=== PATIENT | male | born 2000 | race Caucasian/White ===

== ENCOUNTER 2024-10-22 17:40 | Emergency (ER) | payer BC, SELFPAY ==
--- OUTSIDE RECORDS SUMMARY | 2024-10-22 17:42 | XMS_ITS | Clinical Summary ---
Author Organization [facility] Address [address] [place] [id number] Care Team Providers Care Veterinary Laboratory Diagnostician Name Role Phone Mak Martino MD Primary Care Provider Allergies No known active allergies Medications dextroamphetamine- amphetamine (Adderall XR) 15 mg Extended-Release capsuleIndications :ADHD, predominantly inattentive type Take 1 Capsule (15 mg) by mouth once daily. 30 Capsule 4 Active Active Problems Problem Noted Date Diagnosed Date Class 3 severe obesity witho ut serious comorbidity with body mass index (BMI) of 40.0 to 44.9 in adult 09/25/2023 ADHD, predominantly inattentive type 01/25/2011 Resolved Problems Problem Noted Date Diagnosed Date Resolved Date Torus fracture of lower end of left radius 12/04/2011 03/30/2013 Unspecified adjustment reaction 01/10/2011 09/28/2013 Overview (01/10/2011): School adjustment concerns with rule out of ADHD Behavioral problem 11/06/2010 2 Overview (11/06/2010): attention problems Immunizations Immunization Administration Dates Next Due AMB Influenza, IIV3 (Age >=3 years)(Flu Clinic Only) 06/18/2010,05/05/2008 AMB Influenza, IIV4 PF (=>6 mos Flulaval,Fluzone Fluarix)(Flu Clinic Only) 04/26/2020 COVID-19 vaccine (CompologyBio NTech 30mcg/0.3mL) 12YO+ BIVALENT PF, MDV 04/22/2022 COVID-19 vaccine (Infinity [employer]-Bio NTech 30mcg/0.3mL) PF, MDV 11/24/2020,11/03/2020 DTaP 09/25/2007, 4,03/23/2003,01/26,2002 DTaP-HIB (TriHIBIT) 12/30/2003 HIB-HepB (Comvax) 01/26/2003,2002 HPV 9 (Gardasil 9) 04/22/2022,08/07/2020, 019 Hepatitis A (Peds) 03/30/2013,11/04/2008 Hepatitis B (Peds) 06/08/2003 INFLUENZA, IIV3 PF (AGE >= 6 MO) 06/28/2024 Inactivated Polio Vaccine 09/25/2007,09/2002,01/26/2003,11/18 Influenza, IIV3 (Age 6-35 mos) 03/29/2009,2005,05/20/2005 Influenza, IIV3 (Age >=3 years) 06/02/20 13,07/17/2012,06/18/2010,05/05,06/03/2007,05/21/2006,04/11/2004 ,07/19/2003,06/08/2003 Influenza, IIV4 05/28/2023,,07/02/2019,04/15 MENINGOCOCCAL VACCINE 2 VIAL 2MO-55YO (MENVEO) 07/02/2019,02/15/2015 MMR 09/25/2007,09/27/2003 Pneumococcal conj 7-Valent (Prevnar 7) 0 09/24/2004,03/23/2003,01/26/2003,11/18 Tdap 02/15/2015 Tuberculin (PPD) 06/28/2024 Varicella Vaccine 09/25/2007,09/27/2003 Family History Medical History Relation Name Comments Good Health Father Asthma Maternal Grandfather Good Health Mother Heart Disease Paternal Grandfather Cancer-colon No Family History Diabetes No Family History Hyperlipidemia No Family History Relation Name Status Comments Father Maternal Grandfather Mother Paternal Grandfather Social History Tobacco Use Types Packs/Day Years Used Date Smoking Tobacco: Never Smokeless Tobacco: Never Tobacco Cessation:Counseling Given: No Comments:no exposure Alcohol Use Standard Drinks/Week Comments Yes 0 (1 standard drink = 0.6 oz pur e alcohol) PHQ-2 Answer Date Recorded PHQ-2 TOTAL SCORE 0 09/25/2023 Social Connections Answer Date Recorded Frequency of Communication with Friends and Fami ly 0 04/23/2023 Financial Resource Strain Answer Date R ecorded Difficulty of Paying Living Expenses 3 04/23/2023 Difficulty of Paying Living Expenses Not on file 04/23/2023 Food Insecurity Answer Date Recorded Worried About Running Out of Food in the Last Ye ar 1 04/23/2023 Transportation Needs Answer Date Record ed Lack of Transportation (Medical) 1 04/23/2023 Housing Stability Answer Date Recorded Unable to Pay for Housing in the Last Year 1 04/23/2023 Sex and Gender Information Value Date Recorded Sex Assigned at Not on file 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 Gender Identity Not on file Sexual Orientation Not on file Obstetrics History Last Filed Vital Signs Vital Sign Reading Time Taken Comments Blood Pressure 112/76 09/25/2023 4:34 PM CDT Pulse 89 09/25/2023 4:34 PM CDT Temperature 36.4 C (97.6 F) 05/02/2020 11:25 AM CDT Respiratory Rate - - Oxygen Saturation 98% 09/25/2023 4:34 PM CDT Inhaled Oxygen Concentration - - Weight 134.3 kg (296 lb) 09/25/2023 4:34 PM CDT Height 182.2 cm (5' 11.73) 09/25/2023 4:34 PM C DT Body Mass Index 40.45 09/25/2023 4:34 PM CDT Plan of Treatment Health Maintenance Due Date Last Done Comments COVID-19 vaccine series ( season) 2024 05/28/2023, 04/22/2022, 07/03/2021, Additional history exists BMI (ht and wt on same day) for age 18+ 09/24/2024 09/25/2023, 04/22/2022 Depression screening for age 12+ 09/24/2024 09/25/2023, 04/22/2022, 08/07/2020, Additional history exists Tetanus booster 02/15/2025 02/15/2015 Pneumococcal series for age 6-49 Aged Out 09/24/2004, 03/23/2003, 01/26/2003, Additional history exists No longer eligible based on patient's age to complete this topic Tdap Completed 02/15/2015 HPV series for age 9-26 Completed 04/22/20, 08/07/2020, 07/02/2019 HIV for age 15-65 Completed 09/25/2023 Hepatitis C screening for age 18-79 Completed 09/25/2023 Influenza Vaccine Completed 06/28/2024, , 04/22/2022, Additional history exists Procedures Procedure Name Priority Date/Time Associated Diagnosis Comments ANTI HIV 1/2 Routine 09/25/2023 4:57 PM CDT Encounter for screening for HIV ANTI HCV Routine 09/25/2023 4:57 PM CDT Need for hepatitis C screening test from Last 3 Months or Most Recently Relevant to Health Maintenance Results * ANTI HCV (09/25/2023 4:57 PM CDT) HEPATITIS C ANTIBODY Non-Reacti ve Non-React payam 09/26/2023 2:43 PM CDT [facility] [employer] [facility] Comment:Please note, per www .CDC.gov: If a patient is known to be at high risk of HCV infection, or is symptomatic, and the physician's suspicion of HCV infection is high, HCV RNA testing is often employed and is of diagnostic value, even after an initial negative anti-HCV test result. Blood BLOOD SPECIMEN / Unknown Venipuncture / Unknown 09/25/2023 4:57 PM CDT 09/25/2023 4:58 PM CDT us Mak Martino MD SEND OUTS Final Result [facility] [address] [address], [place] * ANTI HIV 1/2 (09/25/2023 4:57 PM CDT) HIV-1/HIV-2 SCREEN Non-Reacti ve Non-Reacti ve 09/26/2023 2:35 PM CDT [facility] Comment:HIV-1 p24 and HIV-1/ HIV-2 Ab Not Detected. Blood BLOOD SPECIMEN / Unknown Venipuncture / Unknown 09/25/2023 4:57 PM CDT 09/25/2023 4:58 PM CDT us Mak Martino MD SEND OUTS Final Result [facility] [address] [place] [id number], from Last 3 Months or Most Recently Relevant to Health Maintenance Insurance [place] [address] [id number] Care Teams Veterinary Laboratory Diagnostician Relationship Specialty Start Date End Date Mak Martino MD [address] [place] [address] PCP - General Family Practice 09/25/23
[2024-10-22 17:47] VITALS: BP 116/79; PULSE 83; RESP 22; TEMP 36.5; O2SAT 97; BMI 46.5
--- NOTE | 2024-10-22 18:02 | CRLHL7_ITS ---
For Patients: As a result of the Century Cures Act, medical imaging exams and procedure reports are released immediately into your electronic medical record. You may view this report before your referring provider. If you have questions, please contact your health care provider. Indication: Left lower abdominal pain Technique: Noncontrast CT through the abdomen and pelvis with multiplanar reformats. Comparison: None Findings: Lower chest: No acute abnormality appreciated. Hepatobiliary: Hepatic steatosis. No acute abnormality appreciated. Spleen: Unremarkable. Pancreas: No acute abnormality appreciated. Adrenal glands: No acute abnormality appreciated. Kidneys: No significant parenchymal abnormality appreciated. No visualized calculi. No hydronephrosis. Bowel: No obstruction. No focal perienteric or pericolonic stranding is appreciated. The appendix is visualized and appears unremarkable. Vascular: Poorly evaluated on this noncontrast examination. Lymph nodes: No gross lymphadenopathy. Peritoneum: No free air. No free fluid. : There is a punctate partially obstructing distal left ureteral stone with minimal distal ureteral prominence. Soft tissues: No acute abnormality appreciated. Bones: No acute fracture. No lytic or blastic lesion. Impression: 1. Punctate partially obstructing distal left ureteral stone. Very mild hydroureter with no overt hydronephrosis. 2. Hepatic steatosis. Please note that all CT scans at this facility use dose modulation, iterative reconstruction, and/or weight-based dosing when appropriate to reduce radiation dose to as low as reasonably achievable. Dictated by Ethan Ayon MD @ 10/22/2024 6:57:39 PM (Electronically Signed)
[2024-10-22 18:11] LABS: Lactate* 1.4 mmol/L (0.5-1.9)
--- NOTE | 2024-10-22 18:11 | ED_ITS ---
HPI - General Adult General Chief complaint: Abdominal Pain Stated complaint: Severe abdominal pain on lest side Time Seen by Provider: 10/22/24 17:42 Source: patient Mode of arrival: ambulatory Limitations: no limitations History of Present Illness HPI narrative: 24-year-old male coming in today complaining of left-sided abdominal pain. Pain started yesterday and lasted for unclear amount of time. Pain then went away. Approximately an hour and a couple of the pain return. It is sharp and unbearable. It is located somewhere between the left flank and the left lower quadrant. Does not move. Nothing makes it better. Movement in the car ride made it worse. He does not feel nauseated. Denies vomiting, fevers or chills. Denies difficulty with urination including frequency urgency or dysuria. Denies changes in the color of his urine. States that his last bowel movement was today and was normal. No blood in his stools. He denies any weight changes or changes in his appetite. Patient takes Adderall for ADHD, no other medications. No intra-abdominal surgery in the past. No personal or family history of kidney stones. Related Data Home Medications ?Medication ?Instructions ?Recorded ?Confirmed dextroamphetamine-amphetamine ER 1 cap PO QAM 10/22/24 10/22/24 15 mg 24hr capsule,extend release Previous Rx's ?Medication ?Instructions ?Recorded ketorolac 10 mg tablet 10 mg PO TID 5 days #15 tabs 10/22/24 Allergies Allergy/AdvReac Type Severity Reaction Status Date / Time No Known Drug Allergies Allergy Verified 10/22/24 17:47 [facility] Social History Smoking Status: Former smoker How often do you have a drink containing alcohol: 2-3 times a week How many standard drinks containing alcohol do you have on a typical day: 3 or 4 AUDIT-C Alcohol total score: 4 Non-prescribed substance use: denies use Exam Const: Vital Signs, click to edit/add: Vital Signs - 24 hr 10/22/24 17:47 10/22/24 19:06 Temperature 97.7 F Pulse Rate 89 Pulse Rate [Pulse Oximeter] 83 Respiratory Rate 22 16 Blood Pressure 129/78 Blood Pressure [Ri ght Upper Arm] 116/79 Pulse Oximetry 97 97 Oxygen Delivery Me thod Room Air Room Air Course Course ED Course: Labs were unremarkable except for elevated LFTs. Acute hepatitis panel was sent. Abdominal CT without contrast was obtained - shows a punctate stone in the left ureter with mild hydroureter. Liver steatosis. Patient received a L of normal saline IV Toradol. Vital Signs Vital signs: Initial Vital Signs Temperature 97.7 F 10/22/24 17:47 Temperature Source Temporal Artery Scan 10/22/24 17:47 Pulse Rate 83 10/22/24 17:47 Respiratory Rate 22 10/22/24 17:47 Blood Pressure 116/79 10/22/24 17:47 Blood Pressure Mean 91 10/22/24 17:47 Pulse Oximetry 97 10/22/24 17:47 Oxygen Delivery Method Room Air 10/22/24 17:47 Vital Signs Temperature 97.7 F 10/22/24 17:47 Pulse Rate 83 10/22/24 17:47 Respiratory Rate 22 10/22/24 17:47 Blood Pressure 116/79 10/22/24 17:47 Pulse Oximetry 97 10/22/24 17:47 Oxygen Delivery Method Room Air 10/22/24 17:47 Temperature 97.7 F 10/22/24 17:47 Pulse Rate 89 10/22/24 19:06 Respiratory Rate 16 10/22/24 19:06 Blood Pressure 129/78 10/22/24 19:06 Pulse Oximetry 97 10/22/24 19:06 Oxygen Delivery Method Room Air 10/22/24 19:06 Medications Administered Medications: Generic Name Dose Route Start Last Admin Trade Name Freq PRN Reason Stop Dose Admin Sodium Chloride 1,000 mls @ 1,000 mls/hr 10/22/24 18:45 10/22/24 19:00 0.9 % Sodium Chloride 1000 Ml IV 10/22/24 19:44 1,000 mls/hr .Q1H MITCHELL Administration Discontinued Medications Generic Name Dose Route Start Last Admin Trade Name Freq PRN Reason Stop Dose Admin Ketorolac Tromethamine 30 mg 10/22/24 18:41 10/22/24 18:59 Ketorolac 30 Mg/Ml Inj IVP 10/22/24 18:42 30 mg ONCE ONE Administration Medical Decision Making MDM Narrative Medical decision making narrative: 24-year-old male with kidney stone. Liver steatosis. Lab Data Lab results reviewed: Yes I reviewed the patient's lab results Labs: Lab Results 10/22/24 Range/Units 18:00 WBC 8.63 (4.50-11.00) K/uL RBC 5.04 (4.30-5.90) m/uL Hgb 13.6 (13.5-17.5) gm/dL Hct 41.5 (37.0-53.0) % MCV 82 (80-100) fL MCH 27 (26-34) pg MCHC 33 (32-36) gm/dL RDW Coeff of Vladimir 12.9 (11.5-15.5) % Plt Count 242 (140-440) K/uL Neut % (Auto) 58.6 (42.0-72.0) % Lymph % (Auto) 28.9 (20-44) % [place] % (Auto) 10.2 (0.0-11.0) % Eos % (Auto) 1.2 (0.0-7.0) % Baso % (Auto) 0.3 (0.0-3.0) % Neut # (Auto) 5.06 (1.7-7.0) K/uL Lymph # (Auto) 2.49 (0.90-2.90) K/uL [place] # (Auto) 0.90 (0.00-0.90) K/UL Eos # (Auto) 0.10 (0.00-0.50) K/uL Baso # (Auto) 0.03 (0.00-0.30) K/uL Abs Immat Gran (auto) 0.07 (0.00-0.30) K/uL Imm/Tot Granulo (auto) 0.8 % Sodium 136 (135-149) mmol/L Potassium 3.9 (3.6-5.1) mmol/L Chloride 102 (96-114) mmol/L Carbon Dioxide 23 (20-32) mmol/L Anion Gap 11 (7-15) mEq/L BUN 16 (5-24) mg/dL Creatinine 1.2 (0.5-1.5) mg/dL Estimated Creat Clear 99.70 Estimated GFR 88 ml/min Glucose 101 (60-115) mg/dL Lactate 1.4 (0.5-1.9) mmol/L Calcium 9.3 (8.4-10.6) mg/dL Total Bilirubin 0.8 (0.1-1.5) mg/dL Direct Bilirubin 0.3 (0.0-0.5) mg/dL AST 113 H (12-35) U/L ALT 197 H (4-50) U/L Alkaline Phosphatase 90 (40-150) U/L C-Reactive Protein 0.9 (0.5-1.0) mg/dL Total Protein 7.8 (6.0-8.3) g/dL Albumin 4.6 (3.3-5.0) g/dL Urine Color Yellow (Yellow) Urine Appearance Clear (Clear) Urine pH 5.5 (5.0-8.5) Ur Specific [place] 1.025 (1.000-1.030) Urine Protein Negative (Negative) Urine Glucose (UA) Negative (Negative) Urine Ketones Negative (Negative) Urine Blood 1+ A (Negative) Urine Nitrite Negative (Negative) Urine Bilirubin Negative (Negative) Urine Urobilinogen 0.2 (0.2-1.0) Ur Leukocyte Esterase Negative (Negative) Urine RBC 0-2 (0-2) Urine WBC 0-2 (0-5) Ur Squamous Epith Cells None (None-Few) Urine Bacteria None (None) Imaging Data CT scan - abdomen: Attestation: I have reviewed the pertinent imaging results. Radiologist's impression: Technique: Noncontrast CT through the abdomen and pelvis with multiplanar reformats. Comparison: None Findings: Lower chest: No acute abnormality appreciated. Hepatobiliary: Hepatic steatosis. No acute abnormality appreciated. Spleen: Unremarkable. Pancreas: No acute abnormality appreciated. Adrenal glands: No acute abnormality appreciated. Kidneys: No significant parenchymal abnormality appreciated. No visualized calculi. No hydronephrosis. Bowel: No obstruction. No focal perienteric or pericolonic stranding is appreciated. The appendix is visualized and appears unremarkable. Vascular: Poorly evaluated on this noncontrast examination. Lymph nodes: No gross lymphadenopathy. Peritoneum: No free air. No free fluid. : There is a punctate partially obstructing distal left ureteral stone with minimal distal ureteral prominence. Soft tissues: No acute abnormality appreciated. Bones: No acute fracture. No lytic or blastic lesion. Impression: 1. Punctate partially obstructing distal left ureteral stone. Very mild hydroureter with no overt hydronephrosis. 2. Hepatic steatosis. Discharge Plan Discharge Clinical Impression: Calculus of kidney, Steatosis of liver Patient Disposition: Home, Self-Care Condition: Stable Instructions: Kidney Stones (ED) Additional Instructions: Take pain medication as needed. Make sure to increase fluid intake during the day. Follow-up with your primary care provider to discuss fatty liver. Prescriptions: New ketorolac 10 mg tablet 10 mg PO TID 5 Days Qty: 15 0RF No Action dextroamphetamine-amphetamine 15 mg capsule,extended release 24hr 1 cap PO QAM Follow Up/Referrals: Provider,Not a Local [Primary Care Provider] - Stand Alone Forms: [employer] Info Instructions
[2024-10-22 18:12] LABS: Basophils Absolute Auto 0.03 K/uL (0.00-0.30); Basophils Percent Auto 0.3 % (0.0-3.0); Eosinophils Percent Auto 1.2 % (0.0-7.0); Hematocrit 41.5 % (37.0-53.0); Hemoglobin* 13.6 gm/dL (13.5-17.5); Immature Granulocytes Abs Auto 0.07 K/uL (0.00-0.30); Immature Granulocytes Pct Auto 0.8 %; Lymphocytes Absolute Auto 2.49 K/uL (0.90-2.90); Lymphocytes Percent Auto 28.9 % (20-44); Mean Corpuscular HGB Conc 33 gm/dL (32-36); Mean Corpuscular Hemoglobin 27 pg (26-34); Mean Corpuscular Volume 82 fL (80-100); Monocytes Percent Auto 10.2 % (0.0-11.0); Neutrophils Absolute Auto 5.06 K/uL (1.7-7.0); Neutrophils Percent Auto 58.6 % (42.0-72.0); Platelet Count* 242 K/uL (140-440); RDW Coefficient of Variation % 12.9 % (11.5-15.5); Red Blood Count 5.04 m/uL (4.30-5.90); Slide Review Reflex No; White Blood Count* 8.63 K/uL (4.50-11.00)
--- OUTSIDE RECORDS SUMMARY | 2024-10-22 18:18 | XMS_ITS | Clinical Summary ---
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 [address], [place] * ANTI HIV 1/2 (09/25/2023 4:57 PM CDT) HIV-1/HIV-2 SCREEN Non-Reacti ve Non-Reacti ve 09/26/2023 2:35 PM CDT [facility] Comment:HIV-1 p24 and HIV-1/ HIV-2 Ab Not Detected. Blood BLOOD SPECIMEN / Unknown Venipuncture / Unknown 09/25/2023 4:57 PM CDT 09/25/2023 4:58 PM CDT us Mak Martino MD SEND OUTS Final Result [facility] [address] [place] [id number], from Last 3 Months or Most Recently Relevant to Health Maintenance Insurance [facility] [place] [address] [address] [place] [id number] Care Teams Gear Generator Set Up Operator Relationship Specialty Start Date End Date Mak Martino MD [address] [place] [address] PCP - General Family Practice 09/25/23
[2024-10-22 18:20] LABS: Appearance Urine Clear (Clear); Bilirubin Urine Negative (Negative); Blood Urine 1+ (Negative); Color Urine Yellow (Yellow); Glucose Urine Negative (Negative); Ketones Urine Negative (Negative); Protein Urine Negative (Negative); Specific Gravity Urine 1.025 (1.000-1.030); pH Urine 5.5 (5.0-8.5)
[2024-10-22 18:21] LABS: Leukocyte Esterase Urine Negative (Negative); Nitrite Urine Negative (Negative); RBC Urine 0-2 (0-2); Urobilinogen Urine 0.2 (0.2-1.0); WBC Urine 0-2 (0-5)
[2024-10-22 18:26] LABS: Albumin* 4.6 g/dL (3.3-5.0); Chloride* 102 mmol/L (96-114); Potassium* 3.9 mmol/L (3.6-5.1); Sodium* 136 mmol/L (135-149)
[2024-10-22 18:28] LABS: Blood Urea Nitrogen* 16 mg/dL (5-24); Creatinine* 1.2 mg/dL (0.5-1.5); Estimated Glomerular Filt Rate 88 ml/min
[2024-10-22 18:29] LABS: Alanine Aminotransferase* 197 U/L (4-50); Alkaline Phosphatase* 90 U/L (40-150); Anion Gap 11 mEq/L (7-15); Aspartate Amino Transferase* 113 U/L (12-35); Bilirubin Direct* 0.3 mg/dL (0.0-0.5); Bilirubin Total* 0.8 mg/dL (0.1-1.5); Carbon Dioxide* 23 mmol/L (20-32); Total Protein* 7.8 g/dL (6.0-8.3)
[2024-10-22 18:30] LABS: Calcium* 9.3 mg/dL (8.4-10.6); Glucose* 101 mg/dL (60-115)
[2024-10-22 18:32] LABS: C Reactive Protein* 0.9 mg/dL (0.5-1.0)
[2024-10-22] MEDS: KETOROLAC 30 MG/ML inj IVP (18:59)
[2024-10-22] MEDS: 0.9 % SODIUM CHLORIDE 1000 ml 1,000 ML IV (19:00)
[2024-10-22 19:06] VITALS: BP 129/78; PULSE 89; RESP 16; O2SAT 97
[2024-10-25 14:01] LABS: Hep A Ab, IgM Negative (Negative); Hep B Core Ab, IgM Negative (Negative); Hep B Surface Antigen Negative (Negative); Hep C Ab by CIA Index 0.12 IV; Hep C Ab by CIA Interp Negative (Negative)
== END 2024-10-22 20:20 | disposition home or self-care (01) ==
PROVIDERS: Emergency Provider Family Medicine
DX: N20.0 Calculus of kidney (principal); K76.0 Fatty (change of) liver, not elsewhere classified
CPT/HCPCS: 36415; 74176; 80048; 80074; 80076; 81001; 83605; 85025; 86140; 87086; 96361; 96374; 99284; J1885; J7030